=== PATIENT | male | born 2005 | race American Indian/Alaskan Native ===

== ENCOUNTER 2025-06-08 18:04 | Emergency (ER) | payer OTHER ==
[2025-06-08] MEDS: Take Home: Clindamycin HCl 150 MG, 12 Cap Pack PO ONE (18:22)
[2025-06-08] MEDS: Take Home: Acetaminophen/HYDROcodone 325-5 MG, 5 Tab Pack PO ONE (18:22)
== END 2025-06-08 18:30 | disposition home or self-care (01) ==
LOC: DL.ED 18:04
DX: K08.89 Other specified disorders of teeth and supporting structures (principal)
CPT/HCPCS: 99282; A9270